=== PATIENT | female | born 1965 | race Caucasian/White ===

== ENCOUNTER 2017-05-12 17:33 | Emergency (ER) | payer MEDICARE ==
[~2017-05-12] VITALS: Ht 165.1 cm; Wt 70.0 kg
[~2017-05-12 17:33] MED LIST: BUPR75TA5 PO; CLON-364 PO; CLON0.1T PO; DULO60CA7 PO; LUBI24CA7 PO; METH-356 PO; METH10TA13 PO; METH4TAB2 PO; MORP-52 PO; MORPHINE PO; NAPR-850 PO; OXYC30TA PO; OXYC5TAB2 PO; RANI300T PO; SIMV20TA3 PO; VALP250C59 PO; [UNRECOGNIZED DRUG - REMARK]
[2017-05-12] MEDS ORDERED: KETAMINE 10 MG/ML, 20ML ONE (18:04)
[2017-05-12] MEDS ORDERED: KETOROLAC 30 MG/1 ML ONE (18:05)
[2017-05-12] MEDS ORDERED: KETOROLAC 30 MG/1 ML IVPush ONE (18:30)
[2017-05-12] MEDS ORDERED: KETAMINE 100 MG/ML, 5ML IV ONE (18:30)
[2017-05-12 19:19] VITALS: BP 109/84
== END 2017-05-12 19:22 | disposition home or self-care (01) ==
LOC: ED 19:20
DX: G89.29 Other chronic pain (principal); M54.9 Dorsalgia, unspecified; F31.9 Bipolar disorder, unspecified; F10.229 Alcohol dependence with intoxication, unspecified; M79.7 Fibromyalgia; Z98.1 Arthrodesis status
CPT/HCPCS: 96374; 96375; 99284; J1885

== ENCOUNTER → 2018-07-10 | Outpatient (CLI) | payer MEDICARE ==
[~2018-07-10] MED LIST changes: -CLON-364 PO; -CLON0.1T PO; +CLON0.1T22 PO; +CLON0.5T11 PO; +OMNIPAQUE 350 MG/ML, 100ML BOTTLE ONE
== END | disposition home or self-care (01) ==
LOC: RAD 14:45
PROVIDERS: ATTEND Internal Medicine Geriatric Medicine
DX: N20.0 Calculus of kidney (principal)
CPT/HCPCS: 74178; Q9967